=== PATIENT | female | born 1950 | race Caucasian/White ===

== ENCOUNTER 2016-12-28 14:10 | Emergency (ER) | payer MEDICARE, OTHER ==
[2016-12-28] MEDS ORDERED: Morphine 2 MG/ML Syringe IVPUSH ONE ×3 (14:18→15:40)
[2016-12-28] MEDS ORDERED: Ondansetron 4 MG/2 ML SDV IV ONE (14:33)
--- NOTE | 2016-12-28 15:30 | EDM.PDOC ---
ED HPI GENERAL MEDICAL PROBLEM - General Stated Complaint: COMING BY AMBULANCE [id number] Time Seen by Provider: 12/28/16 14:18 Source of Information: Reports: Patient, EMS History Limitations: Reports: No Limitations - History of Present Illness INITIAL COMMENTS - FREE TEXT/NARRATIVE: This 66 yo female patient was brought to the ED by [facility] after [place]. The patient reports she was holding her grandson when she fell between the dock and the boat. The patient reports she landed in the rocks and twisted her left leg. The patient has noticed increased pain in the left hip since the fall. The patient arrived on a LSB. Onset: Today Duration: Minutes: Location: Reports: Lower Extremity, Left Quality: Reports: Ache, Sharp Severity: Moderate Improves with: Reports: None Worsens with: Reports: None Associated Symptoms: Reports: No Other Symptoms Left Hip Pain Score (Numeric/FACES): 9 - Related Data Allergies Allergy/AdvReac Type Severity Reaction Status Date / Time No Known Allergies Allergy Verified 12/28/16 14:24 Home Meds: Home Meds Escitalopram [Lexapro] 20 mg PO DAILY 12/28/16 [History] Naproxen Sodium [Aleve] 220 mg PO DAILY PRN 12/28/16 [History] Review of Systems - Review of Systems Review Of Systems: ROS reveals no pertinent complaints other than HPI. ED EXAM, GENERAL - Physical Exam Exam: See Below Exam Limited By: No Limitations General Appearance: Alert, WD/WN, Moderate Distress Eye Exam: Bilateral Eye: EOMI, Normal Inspection, PERRL Ears: Normal External Exam, Normal Canal, Hearing Grossly Normal, Normal TMs Nose: Normal Inspection, Normal Mucosa, No Blood Throat/Mouth: Normal Inspection, Normal Lips, Normal Teeth, Normal Gums, Normal Oropharynx, Normal Voice, No Airway Compromise Head: Atraumatic, Normocephalic Neck: Normal Inspection, Supple, Non-Tender, Full Range of Motion Respiratory/Chest: No Respiratory Distress, Lungs Clear, Normal Breath Sounds, No Accessory Muscle Use, Chest Non-Tender Cardiovascular: Normal Peripheral Pulses, Regular Rate, Rhythm, No Edema, No Gallop, No JVD, No Murmur, No Rub GI/Abdominal: Normal Bowel Sounds, Soft, Non-Tender, No Organomegaly, No Distention, No Abnormal Bruit, No Mass (Female) Exam: Deferred Rectal (Female) Exam: Deferred Back Exam: Normal Inspection, Full Range of Motion, NT Extremities: Leg Pain (left hip and pelvic pain) Neurological: Alert, Oriented, CN II-XII Intact, Normal Cognition, Normal Gait, Normal Reflexes, No Motor/Sensory Deficits Psychiatric: Normal Affect, Normal Mood Skin Exam: Warm, Dry, Intact, Normal Color, No Rash Lymphatic: No Adenopathy Course - Vital Signs Last Recorded V/S: Last Vital Signs Temp 36.6 C 12/28/16 14:10 Pulse 74 12/28/16 14:10 Resp 18 12/28/16 14:10 BP 124/68 12/28/16 14:10 Pulse Ox 100 12/28/16 14:10 - Orders/Labs/Meds Orders: Active Orders 24 hr Category Date Time Status Hip Min 1V w Pelvis Lt [CR] Urgent Exams 12/28/16 14:19 Taken Meds: Medications Discontinued Medications Generic Name Dose Route Start Last Admin Trade Name Freq PRN Reason Stop Dose Admin Morphine Sulfate 2 mg 12/28/16 14:18 12/28/16 14:25 Morphine IVPUSH 12/28/16 14:19 2 mg ONETIME ONE Administration Morphine Sulfate 2 mg 12/28/16 14:33 12/28/16 14:37 Morphine IVPUSH 12/28/16 14:34 2 mg ONETIME ONE Administration Ondansetron HCl 4 mg 12/28/16 14:33 12/28/16 14:37 Zofran IV 12/28/16 14:34 4 mg ONETIME ONE Administration Departure - Departure Time of Disposition: 15:28 Disposition: DC/Tfer to Acute Hospital 02 Condition: Fair Clinical Impression: Femur fracture, left Qualifiers: Encounter type: initial encounter Femur location: neck Fracture type: closed Qualified Code(s): S72.002A - Fracture of unspecified part of neck of left femur , initial encounter for closed fracture - Discharge Information Care Plan Goals: Discussed the examination and x-ray results with Dr. Mohr (Orthopedics) and Dr. Durham (ED) with [facility] in [place]. The provider accepted the patient for continued evaluation and management. The patient will be transported by [facility]. - My Orders Last 24 Hours: My Active Orders 12/28/16 14:19 Hip Min 1V w Pelvis Lt [CR] Urgent - Assessment/Plan Last 24 Hours: My Active Orders 12/28/16 14:19 Hip Min 1V w Pelvis Lt [CR] Urgent
[2016-12-28 15:43] VITALS: BP 138/70
== END 2016-12-28 16:01 ==
LOC: DL.ED 14:10
DX: S72.142A Displaced intertrochanteric fracture of left femur, initial encounter for closed fracture (principal); W17.89XA Other fall from one level to another, initial encounter; Y92.814 Boat as the place of occurrence of the external cause; Z79.899 Other long term (current) drug therapy
CPT/HCPCS: 73501; 96374; 96375; 96376; 99285; J2270; J2405; 99284